=== PATIENT | male | born 1990 | race Caucasian/White ===

== ENCOUNTER 2016-08-10 18:47 | Emergency (ER) | payer SELFPAY ==
[~2016-08-10] VITALS: Ht 172.7 cm; Wt 56.0 kg
[~2016-08-10 18:47] MED LIST: MELO7.5T PO; ROBA750T3 PO
[2016-08-10 18:49] VITALS: BP 129/67; PULSE 77; RESP 15; TEMP 98.2; O2SAT 98
--- NOTE | 2016-08-10 19:14 | PD ---
HPI Chief Complaint: Cold / Flu Symptoms Time Seen by Provider: 19:11 Travel History International Travel<30 days: No Contact w/Intl Traveler<30days: No Traveled to known affect area: No History of Present Illness HPI 26-year-old white male presents to emergency department with a one-week history of cough and congestion. He states that he coughs so hard he feels mucus come up into his throat and gets stuck. He has a swallow hardly to get the mucus down and breathe. He has associated sore throat, muscle aches, joint pain, and occasional wheeze. He denies any fever or chills. No nausea vomiting. No abdominal pain or diarrhea. The patient was seen in urgent care yesterday and was placed on amoxicillin. He states that he did not feel comfortable with his evaluation yesterday and comes in today for second opinion. [facility] Past Medical History Narrative Medical Kidney stones Blood Disorders: No Cardiovascular Problems: No Diminished Hearing: No Endocrine: No Genitourinary: Yes Immune Disorder: No Kidney Stones: Yes Musculoskeletal: No Neurologic: No Psychiatric: No Respiratory: No Tetanus Vaccination: < 5 Years Past Surgical History Narrative Surgical Lithotripsy, stent urethral stent Endocrine Surgery: Yes (LITHOTRIPSY X1) Pacemaker: No Other Surgery: Yes (L URETER STENT PLACEMENT) Social History Alcohol Use: Yes Tobacco Use: Yes Substance Use: Yes Allergies-Medications (Allergen,Severity, Reaction): Coded Allergies: No Known Allergies (Verified , 02/26/14) Reported Meds & Prescriptions Reported Meds & Active Scripts Active Mobic (Meloxicam) 7.5 Mg Tab 7.5 Mg PO DAILY Robaxin-750 (Methocarbamol) 750 Mg Tab 750 Mg PO TID Review of Systems Except as stated in HPI: all other systems reviewed are Neg Physical Exam Narrative GENERAL: Well-developed, well-nourished in no acute distress. Nontoxic appearing. HEAD: Normocephalic, atraumatic. EYES: Pupils equal round and reactive. Extraocular motions intact. No scleral icterus. No injection or drainage. ENT: TMs clear without erythema. The external auditory canals clear. Nose: clear . Posterior pharynx is mildly erythematous and moist. No tonsillar edema or exudate. Uvula midline. Airway patent. NECK: Trachea midline.Supple, nontender, moves head freely. No central bony tenderness or spasm. CARDIOVASCULAR: Regular rate and rhythm without murmurs, gallops, or rubs. RESPIRATORY: Clear to auscultation. Breath sounds equal bilaterally. No wheezes , rales, or rhonchi. GASTROINTESTINAL: Abdomen soft, non-tender, nondistended. No hepato-splenomegaly , or palpable masses. No guarding. EXTREMITIES: No clubbing, cyanosis, or edema. No joint tenderness, effusion, or edema noted. BACK: Nontender without deformity or crepitance. No flank tenderness. Data Data Last Documented VS Vital Signs Date Time Temp Pulse Resp B/P Pulse Ox O2 Delivery O2 Flow Rate FiO2 08/10/16 18:49 98.2 77 15 129/67 98 MDM Medical Decision Making Medical Screen Exam Complete: Yes Emergency Medical Condition: Yes Medical Record Reviewed: Yes Differential Diagnosis MDM: High Differential diagnoses: Pneumonia, bronchitis, URI, asthma, RAD, legionnaire's disease, SARS, ARDS, influenza, bronchiolitis, RSV,PE,CHF Narrative Course This is a viral URI. Patient will be given albuterol MDI Diagnosis Primary Impression: Viral URI Patient Instructions: General Instructions Departure Forms: Tests/Procedures, Work Release Special Instructions: No work 2 days Additional Instructions: Rest. Increase fluids. Tylenol and Advil. Robitussin-DM. Continue your antibiotic. albuterol. Followup with your Dr. in one week. Return to the ER for any problems. Med/Other Pt SpecificInfo: Prescription(s) given Disposition: 01 DISCHARGE HOME Condition: Stable Tomás Gutierrez Aug 10, 2016 19:14
[2016-08-10] MEDS ORDERED: ALBU6.7H INH (19:15)
== END 2016-08-10 19:36 | disposition home or self-care (01) ==
LOC: NEPK 18:47
DX: J06.9 Acute upper respiratory infection, unspecified (principal); B97.89 Other viral agents as the cause of diseases classified elsewhere; R05 Cough; M79.1 Myalgia; M25.50 Pain in unspecified joint; R06.2 Wheezing; Z72.0 Tobacco use; Z87.448 Personal history of other diseases of urinary system
CPT/HCPCS: 99282

== ENCOUNTER 2016-08-11 02:17 | Emergency (ER) | payer SELFPAY ==
[~2016-08-11] VITALS: Ht 172.7 cm; Wt 56.0 kg
[~2016-08-11 02:17] MED LIST changes: +ALBU6.7H INH
[2016-08-11 02:21] VITALS: BP 135/76; PULSE 78; RESP 16; TEMP 98.1; O2SAT 98
[2016-08-11 03:00] LABS: AUTOMATED NEUTROPHIL # 3.9 TH/MM3 (1.8-7.7); BASOPHIL # 0.1 TH/MM3 (0-0.2); EOSINOPHIL # 0.2 TH/MM3 (0-0.4); EOSINOPHIL % 2.9 % (0.0-4.0); HEMO FLAGS DIFF FINAL; LYMPHOCYTE # 3.2 TH/MM3 (1.0-4.8); MEAN CELL VOLUME 90.7 FL (80.0-100.0); MEAN CORPUSCULAR HEMOGLOBIN 29.7 PG (27.0-34.0); MEAN CORPUSCULAR HGB CONC 32.7 % (32.0-36.0); MONO % 11.6 % (0.0-8.0); NEUT % 46.5 % (16.0-70.0); PLATELET COUNT 278 TH/MM3 (150-450); RED BLOOD COUNT 5.18 MIL/MM3 (4.50-5.90); RED CELL DISTRIBUTION WIDTH 12.5 % (11.6-17.2); WHITE BLOOD COUNT 8.4 TH/MM3 (4.0-11.0)
[2016-08-11 03:14] LABS: BICARBONATE 27.8 MEQ/L (21.0-32.0); POTASSIUM 4.2 MEQ/L (3.5-5.1)
--- NOTE | 2016-08-11 03:29 | PD ---
HPI Chief Complaint: ENT Complaint Time Seen by Provider: 03:24 Travel History International Travel<30 days: No Contact w/Intl Traveler<30days: No Traveled to known affect area: No History of Present Illness HPI 26-year-old white male returns to the ER this evening for evaluation of shortness of breath. This is a patient who had seen earlier this evening for viral URI symptoms. He was seen in an urgent care and started on amoxicillin the day before. He was discharged on an albuterol inhaler. He reports choking and having difficulty breathing this evening. The patient reports having increase mucous secretions. He denies any fever or chills. No nausea vomiting. No abdominal pain. States symptoms were severe. At time of presentation there were mild. PFSH Past Medical History Narrative Medical Kidney stones Blood Disorders: No Cardiovascular Problems: No Diminished Hearing: No Endocrine: No Gastrointestinal Disorders: No Genitourinary: Yes Immune Disorder: No Kidney Stones: Yes Musculoskeletal: No Neurologic: No Psychiatric: No Respiratory: No Immunizations Current: Yes Tetanus Vaccination: < 5 Years Past Surgical History Narrative Surgical Lithotripsy, ureteral stent Endocrine Surgery: Yes (LITHOTRIPSY X1) Pacemaker: No Other Surgery: Yes (L URETER STENT PLACEMENT) Social History Alcohol Use: Yes (socially) Tobacco Use: Yes Substance Use: Yes Allergies-Medications (Allergen,Severity, Reaction): Coded Allergies: No Known Allergies (Verified , 02/26/14) Reported Meds & Prescriptions Reported Meds & Active Scripts Active Proventil Hfa 6.7 GM Inh (Albuterol Sulfate) 90 Mcg/Act Aer 2 Puff INH Q4-6H PRN Review of Systems Except as stated in HPI: all other systems reviewed are Neg General / Constitutional: No: Fever, Chills Eyes: No: Blurred Vision, Photophobia HENT: Positive: Sore Throat, No: Headaches Cardiovascular: No: Chest Pain or Discomfort, Palpitations Respiratory: Positive: Cough, Shortness of Breath, Wheezing Gastrointestinal: No: Nausea, Vomiting Genitourinary: No: Dysuria, Nocturia Musculoskeletal: Positive: Myalgias, No: Arthralgias Physical Exam Narrative GENERAL: Well-developed, well-nourished in no acute distress. Nontoxic appearing. HEAD: Normocephalic, atraumatic. EYES: Pupils equal round and reactive. Extraocular motions intact. No scleral icterus. No injection or drainage. ENT: TMs clear without erythema. The external auditory canals clear. Nose: clear . Posterior pharynx is pink and moist. No tonsillar edema or exudate. Uvula midline. Airway patent. NECK: Trachea midline.Supple, nontender, moves head freely. No central bony tenderness or spasm. CARDIOVASCULAR: Regular rate and rhythm without murmurs, gallops, or rubs. RESPIRATORY: Clear to auscultation. Breath sounds equal bilaterally. No wheezes , rales, or rhonchi. GASTROINTESTINAL: Abdomen soft, non-tender, nondistended. No hepato-splenomegaly , or palpable masses. No guarding. EXTREMITIES: No clubbing, cyanosis, or edema. No joint tenderness, effusion, or edema noted. BACK: Nontender without deformity or crepitance. No flank tenderness. Data Data Last Documented VS Vital Signs Date Time Temp Pulse Resp B/P Pulse Ox O2 Delivery O2 Flow Rate FiO2 08/11/16 02:21 98.1 78 16 135/76 98 Room Air Orders Complete Blood Count With Diff (08/11/16 02:33) Basic Metabolic Panel (Bmp) (08/11/16 02:33) Group A Rapid Strep Screen (08/11/16 02:33) Chest, Pa & Lat (08/11/16 02:33) Iv Access Insert/Monitor (08/11/16 02:33) Strep Culture (Group A) (08/11/16 02:41) Labs Laboratory Tests Test 08/11/16 02:41 White Blood Count 8.4 TH/MM3 Red Blood Count 5.18 MIL/MM3 Hemoglobin 15.4 GM/DL Hematocrit 47.0 % Mean Corpuscular Volume 90.7 FL Mean Corpuscular Hemoglobin 29.7 PG Mean Corpuscular Hemoglobin 32.7 % Concent Red Cell Distribution Width 12.5 % Platelet Count 278 TH/MM3 Mean Platelet Volume 7.9 FL Neutrophils (%) (Auto) 46.5 % Lymphocytes (%) (Auto) 38.0 % Monocytes (%) (Auto) 11.6 % Eosinophils (%) (Auto) 2.9 % Basophils (%) (Auto) 1.0 % Neutrophils # (Auto) 3.9 TH/MM3 Lymphocytes # (Auto) 3.2 TH/MM3 Monocytes # (Auto) 1.0 TH/MM3 Eosinophils # (Auto) 0.2 TH/MM3 Basophils # (Auto) 0.1 TH/MM3 CBC Comment DIFF FINAL Differential Comment Sodium Level 140 MEQ/L Potassium Level 4.2 MEQ/L Chloride Level 103 MEQ/L Carbon Dioxide Level 27.8 MEQ/L Anion Gap 9 MEQ/L Blood Urea Nitrogen 16 MG/DL Creatinine 1.06 MG/DL Estimat Glomerular Filtration 84 ML/MIN Rate Random Glucose 107 MG/DL Calcium Level 9.2 MG/DL MDM Medical Decision Making Medical Screen Exam Complete: Yes Emergency Medical Condition: Yes Medical Record Reviewed: Yes Interpretation(s) Chest x-ray: No acute primary processCBC & BMP Diagram 08/11/16 02:41 Rapid strep: Negative Differential Diagnosis MDM: High Differential diagnoses: Pneumonia, bronchitis, URI, asthma, RAD, legionnaire's disease, SARS, ARDS, influenza, bronchiolitis, RSV,PE,CHF Narrative Course Patient's evaluation in the ER is unremarkable. He is resting comfortable. His vital signs are normal. This is viral URI Diagnosis Primary Impression: Viral URI Patient Instructions: General Instructions Additional Instructions: Rest. Increase fluids. Tylenol and Advil. Robitussin-DM. Mucinex. Continue your antibiotic and albuterol. Sit up in a recliner at night to sleep. Followup with your Dr. in one week. Return to the ER for any problems. Med/Other Pt SpecificInfo: No Change to Meds Disposition: 01 DISCHARGE HOME Condition: Stable Tomás Gutierrez Aug 11, 2016 03:29
--- NOTE | 2016-08-11 03:56 | RADRPT ---
EXAM DATE/TIME: 08/11/2016 02:59 [facility] COMPARISON: No previous studies available for comparison. INDICATIONS : Cough. MEDICAL HISTORY : None. SURGICAL HISTORY : None. ENCOUNTER: Initial ACUITY: 3 days PAIN SCORE: 0/10 LOCATION: Bilateral chest FINDINGS: PA and lateral views of the chest demonstrate the lungs to be symmetrically aerated without evidence of mass, infiltrate or effusion. The cardiomediastinal contours are unremarkable. Osseous structure s are intact. CONCLUSION: 1. No acute cardiopulmonary disease. Yash Plata MD on August 11, 2016 at 3:54 Board Certified Radiologist. This report was verified electronically.
== END 2016-08-11 04:21 | disposition home or self-care (01) ==
LOC: NEPD 02:17
DX: J06.9 Acute upper respiratory infection, unspecified (principal); R06.00 Dyspnea, unspecified; Z72.0 Tobacco use
CPT/HCPCS: 71020; 80048; 85025; 87081; 87880; 99284